=== PATIENT | male | born 1955 | race African-American/Black ===

== ENCOUNTER 2018-02-06 11:30 | Emergency (ER) | payer BC ==
[~2018-02-06] VITALS: Ht 175.3 cm; Wt 99.8 kg
--- NOTE | ~2018-02-06 | EKG ---
[address] [place] [employer] [place] [address] ELECTROCARDIOGRAM REPORT Name: JAN HERNANDEZ [id number] Admission: 02/06/18 Attend Phys: Discharge: 02/06/18 Date of : 59 Report #: [id number] THIS REPORT FOR: //name// [facility] ED Test Date: 2018-02-06 Test Time: 12:04:53 Pat Name: JAN HERNANDEZ Department: Room: Gender: M Courtroom Reporter: RODNEY : 1955 Requested By: Deshawn Napoles Order Number: [id number] MD: Jensen Montano Measurements Intervals [place] Rate: 60 P: 45 MT: 148 QRS: -6 QRSD: 79 T: -9 QT: 409 QTc: 409 Interpretive Statements Sinus rhythm Nonspecific ST and T wave abnormality Compared to ECG 10/18/2010 06:10:47 No significant change was found Electronically Signed On 02-07-2018 8:47:21 CDT by Jensen Montano [email or web address] <ELECTRONICALLY SIGNED> By: Jensen Montano MD, [facility] 02/07/18 0847 [id number] Jensen Montano MD, FACC /EPI
[~2018-02-06 11:30] MED LIST: B12INJ; IBUPROFEN 200200 M1; NORCO 5-325 TA1 EACH PO
[2018-02-06 12:31] LABS: BASOPHILS 0.6 % (0.0-2.0); EOSINOPHILS 2.8 % (0.0-3.0); HEMATOCRIT 45.2 % (42.0-52.0); HEMOGLOBIN 15.5 gm/dL (14.0-18.0); LYMPHOCYTES 13.7 % (24.0-44.0); MCH 30.6 pg (26.0-34.0); MCHC 34.4 g/dL (28.0-37.0); MCV 89.1 fL (80.0-100.0); MONOCYTES 6.9 % (1.0-8.0); PLATELET COUNT 243 thou/uL (150-400); RBC 5.07 mil/uL (4.50-6.00); RDW 14.5 % (10.5-14.5); WBC 10.5 thou/uL (4.0-11.0)
[2018-02-06 12:39] LABS: ANION GAP 8 mmol/L (7-16); BUN 13 mg/dL (7-18); CALCIUM 9.3 mg/dL (8.5-10.1); CHLORIDE 104 mmol/L (98-107); CO2 27 mmol/L (21-32); CREATININE 1.1 mg/dL (0.7-1.3); GLUCOSE 107 mg/dL (74-106); POTASSIUM 4.4 mmol/L (3.5-5.1); SODIUM 139 mmol/L (136-145)
[2018-02-06 12:48] LABS: TROPONIN-I <0.06 ng/mL (<0.06)
[2018-02-06] MEDS ORDERED: AMLODIPINE BESY10 MG PO (13:24)
[2018-02-06] MEDS ORDERED: ZOFRAN ODT4 MG PO (14:38)
[2018-02-06] MEDS ORDERED: ANTIVERT25 MG PO (14:38)
== END 2018-02-06 15:07 | disposition home or self-care (01) ==
LOC: ER 11:30
PROVIDERS: Emergency Medicine
DX: R42 Dizziness and giddiness (principal); R51 Headache; R11.0 Nausea; I10 Essential (primary) hypertension

== ENCOUNTER → 2021-01-18 | Outpatient (CLI) | payer OTHER ==
[~2021-01-18] MED LIST changes: +AMLODIPINE BESY10 MG PO; +ANTIVERT25 MG PO; +ZOFRAN ODT4 MG PO
== END ==
LOC: CAT 13:22
PROVIDERS: ATTEND Family Medicine
DX: Z13.6 Encounter for screening for cardiovascular disorders (principal); I25.10 Atherosclerotic heart disease of native coronary artery without angina pectoris; E78.00 Pure hypercholesterolemia, unspecified